=== PATIENT | male | born 1980 | race African-American/Black ===

== ENCOUNTER 2024-10-24 22:33 | Emergency (ER) | payer OTHER ==
[~2024-10-24] VITALS: Ht 167.6 cm; Wt 76.2 kg
[2024-10-24 22:52] VITALS: BP 170/96; RESP 16; TEMP 37.6; O2SAT 100
[2024-10-24 22:53] VITALS: PULSE 61; O2SAT 100
== END 2024-10-25 06:20 | disposition left against medical advice (07) ==
LOC: ER 22:33
DX: K08.89 Other specified disorders of teeth and supporting structures (principal); Z53.21 Procedure and treatment not carried out due to patient leaving prior to being seen by health care provider

== ENCOUNTER 2025-01-09 09:02 | Emergency (ER) | payer OTHER ==
[~2025-01-09] VITALS: Ht 172.7 cm; Wt 81.6 kg
[2025-01-09 09:16] VITALS: TEMP 36.6; O2SAT 100
[2025-01-09] MEDS ORDERED: CEPH500C2 MT (09:38)
[2025-01-09 10:21] VITALS: BP 152/82; PULSE 63; RESP 18; O2SAT 100
== END 2025-01-09 10:28 | disposition home or self-care (01) ==
LOC: ER 09:02
DX: S30.861A Insect bite (nonvenomous) of abdominal wall, initial encounter (principal); L03.311 Cellulitis of abdominal wall; I10 Essential (primary) hypertension; W57.XXXA Bitten or stung by nonvenomous insect and other nonvenomous arthropods, initial encounter; Y93.89 Activity, other specified; Y92.89 Other specified places as the place of occurrence of the external cause; Y99.8 Other external cause status
CPT/HCPCS: 99283